=== PATIENT | male | born 1970 | race African-American/Black ===

== ENCOUNTER 2021-05-03 17:14 | Emergency (ER) | payer SELFPAY ==
[~2021-05-03] VITALS: Ht 172.7 cm; Wt 75.0 kg
[2021-05-03 17:28] VITALS: BP 127/76
== END 2021-05-03 20:09 | disposition left against medical advice (07) ==
LOC: ER 17:14
DX: Z53.21 Procedure and treatment not carried out due to patient leaving prior to being seen by health care provider (principal)